=== PATIENT | male | born 1965 | race African-American/Black ===

== ENCOUNTER 2019-06-07 18:16 | Emergency (ER) | payer OTHER, BC, SELFPAY ==
[2019-06-07 18:18] VITALS: BP 146/85; PULSE 65; RESP 16; TEMP 36.4; O2SAT 97
--- NOTE | 2019-06-07 18:28 | ED.GENADULT ---
HPI - General Adult General Chief complaint: Extremity Injury, Upper Stated complaint: Rt elbow injury Time Seen by Provider: 06/07/19 18:28 Source: patient Mode of arrival: ambulatory Limitations: no limitations History of Present Illness HPI narrative: 54-year-old male patient presents to the [facility] with complaints of right elbow pain. Patient states that he was at work today and was coming out of the stairwell and got his sleeve caught on the door handle and when the door slammed in a hyperextended his right arm. Patient states that since then he is been having pain to the right elbow and states that he feels like he cannot make a muscle. Patient denies any numbness or tingling to the fingertips. Patient denies taking thing for the pain. Related Data Allergies Allergy/AdvReac Type Severity Reaction Status Date / Time No Known Allergies Allergy Verified 11/09/17 08:35 Review of Systems Review of Systems: Narrative: CONSTITUTIONAL: Denies fever, chills, or sweats. EYES: Denies visual changes, redness, or discharge. ENT: Denies rhinorrhea, congestion, sore throat, or otalgia. CARDIOVASCULAR: Denies chest pain, palpitations, or edema. RESPIRATORY: Denies cough or dyspnea. GASTROINTESTINAL: Denies abdominal pain, nausea, vomiting, or diarrhea. GENITOURINARY: Denies dysuria or hematuria. SKIN: Denies rash or itching. MUSCULOSKELETAL: Denies back pain, joint pain, or myalgia. Positive right elbow pain NEUROLOGIC: Denies headache, numbness, or weakness. PSYCHIATRIC: Denies anxiety or depression. [facility] Surgical History Surgical History (Updated 06/07/19 @ 18:29 by HARLEEN Sheth) History of orthopedic surgery 2 arthroscopies and 1 reconstructive on right knee. Hx of cholecystectomy Family History Family History Grandparent Family history of Alzheimer's disease Diabetes mellitus Social History Social History Smoking status: Never smoker Alcohol intake: current Comments At the time of my signature I agree with nursing past medical history, surgical, social, and family history. There is no relevant family history pertinent to the presenting complaint. Exam Narrative: Exam Narrative: GENERAL: Well-appearing, well-nourished, and in no acute distress. HEAD: Normocephalic, atraumatic. EYES: PERRLA and EOMI. ENT: Nares clear, no rhinorrhea or epistaxis. Mucous membranes moist. NECK: Supple. No lymphadenopathy CHEST: Clear to auscultation. No respiratory distress. HEART: Regular rate and rhythm. No murmur heard. Normal peripheral pulses. ABDOMEN: Soft, nontender, nondistended, normal active bowel sounds. EXTREMITIES: The R elbow is without obvious asymmetry or deformity when compared to the L elbow. No obvious surface trauma, ecchymosis. There is some swelling noted to the anterior side of the right elbow on the ulnar side. There is an obvious muscle spasm/pulled muscle to the area there. There is slight tenderness noted on palpation to this area. No bony tenderness to palpation of the lateral or medial epicondyle, olecranon, or radial head. No epicondylar or axillary lymphadenopathy. Normal flexion, extension, supination, pronation. Normal muscle strength. Intact motor and sensation of ulnar, median, and radial nerves. SKIN: Warm, dry, no rash. NEURO: No focal deficits. Alert and oriented x3. Course Vital Signs Vital signs: Vital Signs Temperature 36.4 C L 06/07/19 18:18 Pulse Rate 65 06/07/19 18:18 Respiratory Rate 16 06/07/19 18:18 Blood Pressure 146/85 H 06/07/19 18:18 Pulse Oximetry 97 06/07/19 18:18 Temperature 36.4 C L 06/07/19 18:18 Pulse Rate 65 06/07/19 18:18 Respiratory Rate 16 06/07/19 18:18 Blood Pressure 146/85 H 06/07/19 18:18 Pulse Oximetry 97 06/07/19 18:18 Medical Decision Making Differential Diagnosis Differential Diagnosis: Differenti
== END 2019-06-07 18:43 | disposition home or self-care (01) ==
PROVIDERS: Emergency Provider Nurse Practitioner Family; PCP Family Medicine
DX: S53.401A Unspecified sprain of right elbow, initial encounter (principal); X50.0XXA Overexertion from strenuous movement or load, initial encounter
CPT/HCPCS: 99213; G0463

== ENCOUNTER 2019-06-12 00:08 | Emergency (ER) | payer OTHER, BC, SELFPAY ==
--- NOTE | ~2019-06-12 | XR_ITS ---
XR elbow RT min 3V 06/12/2019 01:04 INDICATION: Hyperextension injury PROCEDURE: 4 views right elbow COMPARISON: No prior studies for comparison. FINDINGS: Fracture, dislocation or subluxation is not identified. No significant joint effusion. The soft tissues appear within normal limits. No foreign bodies are identified. IMPRESSION: 1: NO ACUTE BONE OR JOINT ABNORMALITY IDENTIFIED. Reviewed, dictated and finalized at location A. ATION SYSTEMS OUTREACH SPECIALIST
--- NOTE | 2019-06-12 00:31 | ED.GENADULT ---
HPI - General Adult General Chief complaint: Extremity Injury, Upper Stated complaint: hyper extended r arm Time Seen by Provider: 06/12/19 00:31 Source: patient Mode of arrival: ambulatory Limitations: no limitations History of Present Illness HPI narrative: A 54 y/o male presents to the ED with c/o RUE pain since Thursday (5 days ago). Pt states that he was in a stairwell holding a door open when there was a vacuum effect from the wind and his elbow hyperextended. Pt noticed bruising on his RUE yesterday. He denies numbness/tingling and being on a blood thinner. Onset (ago): day(s) (5) Location: right and upper extremity Associated symptoms: other (RUE bruising) Related Data Allergies Allergy/AdvReac Type Severity Reaction Status Date / Time No Known Allergies Allergy Verified 06/12/19 00:56 Review of Systems Review of Systems: All systems reviewed & are unremarkable except as noted in HPI and below Musculoskeletal: Comments: Reports: RUE pain Neurologic: Denies numbness (and tingling) Hematologic/Lymphatic: Comments: Reports: RUE bruising PMFSH Past Medical History Medical History Sinus problem Wears glasses Surgical History Surgical History History of orthopedic surgery 2 arthroscopies and 1 reconstructive on right knee. Hx of cholecystectomy Family History Family History Grandparent Family history of Alzheimer's disease Diabetes mellitus Social History Social History Smoking status: Never smoker Alcohol intake: current Comments PCP: Dr. Mims Exam Narrative: Exam Narrative: APPEARANCE: No acute distress, nontoxic, resting in bed Eyes: EOMI HEENT: Normocephalic, atraumatic, RESPIRATORY: No respiratory distress MUSCULOSKELETAl: Tender palpation over the right medial palmar elbow in the region of the biceps tendon insertion ecchymosis over the forearm in this region as well as up into the medial bicep, radial pulse 2+, neurovascular intact, full flexion extension of the elbow shoulder and wrist without pain neurovascular intact NEURO: Awake and alert. Following commands, speech normal, no focal deficits SKIN:: Warm, dry. Normal Color no rash or lesions Course Course Emergency Course: Discussed with Dr. Richards presentation work-up. Discussed concern of distal bicep tendon rupture. Request patient be placed in sling with follow-up in the office on Thursday Discussed with patient results of workup and diagnosis. Discussed need for follow-up with primary care, proper use of medication, and reasons to return to the emergency department. Patient understands and agrees to current treatment plan Vital Signs Vital signs: Vital Signs Temperature 97.1 F L 06/12/19 00:53 Pulse Rate 68 06/12/19 00:53 Respiratory Rate 20 06/12/19 00:53 Blood Pressure 137/74 06/12/19 00:53 Pulse Oximetry 99 06/12/19 00:53 Temperature 97.1 F L 06/12/19 00:53 Pulse Rate 68 06/12/19 00:53 Respiratory Rate 20 06/12/19 00:53 Blood Pressure 137/74 06/12/19 00:53 Pulse Oximetry 99 06/12/19 00:53 Medical Decision Making Vital Signs Vital Signs: Vital Signs Temperature 97.1 F L 06/12/19 00:53 Pulse Rate 68 06/12/19 00:53 Respiratory Rate 20 06/12/19 00:53 Blood Pressure 137/74 06/12/19 00:53 Pulse Oximetry 99 06/12/19 00:53 Temperature 97.1 F L 06/12/19 00:53 Pulse Rate 68 06/12/19 00:53 Respiratory Rate 20 06/12/19 00:53 Blood Pressure 137/74 06/12/19 00:53 Pulse Oximetry 99 06/12/19 00:53 Imaging Data Attestation: I personally reviewed and interpreted this imaging study as follows: My impression: Elbow x-ray reviewed by myself shows no acute process Discharge Plan Discharge Clinical Impression: Rupture of right distal biceps tendon Patient
[2019-06-12 00:53] VITALS: BP 137/74; PULSE 68; RESP 20; TEMP 36.2; O2SAT 99
[2019-06-12 01:30] VITALS: BP 125/68; PULSE 70; RESP 18; TEMP 36.7; O2SAT 99
== END 2019-06-12 01:40 | disposition home or self-care (01) ==
PROVIDERS: Emergency Provider Emergency Medicine; PCP Family Medicine
DX: S46.211A Strain of muscle, fascia and tendon of other parts of biceps, right arm, initial encounter (principal); X50.9XXA Other and unspecified overexertion or strenuous movements or postures, initial encounter
CPT/HCPCS: 73080; 99283; A4565

== ENCOUNTER 2019-06-15 14:58 | Outpatient (CLI) | payer OTHER, BC, SELFPAY ==
--- NOTE | 2019-06-15 15:11 | ECG_ITS ---
Measurements Intervals [place] Rate: 61 P: 7 OK: 152 QRS: 54 QRSD: 90 T: 50 QT: 366 QTc: 371 Interpretive Statements SINUS RHYTHM NORMAL ECG Electronically Signed On 06-15-2019 15:25:39 MOSS GATHERER by Frederick Garces D.O.
[2019-06-15 15:16] LABS: Hematocrit 41.6 % (42.0-52.0); Hemoglobin 13.8 g/dL (14.0-18.0); Mean Corpuscular HGB Conc 33.2 g/dl (32-36); Mean Corpuscular Hemoglobin 29.5 pg (26-34); Mean Corpuscular Volume 88.9 fl (80-100); Mean Platelet Volume 10.1 fl (7.4-10.4); Platelet Count Result 241 k/mm3 (150-375); Red Blood Count 4.68 M/mm3 (4.6-6.20); Red Cell Distribution Width 13.2 % (11.5-14.5)
[2019-06-15 15:25] LABS: Blood Urea Nitrogen 16 mg/dL (9-20); Calcium 9.2 mg/dL (8.4-10.2); Carbon Dioxide 26 mmol/L (22-30); Chloride 102 mmol/L (98-107); Estimated Glomerular Filt Rate > 60; Glucose 91 mg/dL (75-110); Potassium 4.3 mmol/L (3.4-5.0); Sodium 139 mmol/L (137-145)
== END 2019-06-15 14:59 | disposition home or self-care (01) ==
PROVIDERS: PCP Family Medicine; Visit Provider Nurse Practitioner Family
DX: Z01.818 Encounter for other preprocedural examination (principal)
CPT/HCPCS: 36415; 80048; 85027; 93005

== ENCOUNTER 2019-06-17 00:25 | Day surgery (SDC) | payer OTHER, BC, SELFPAY ==
[2019-06-15 09:59] VITALS: BMI 31.8
[2019-06-17] VITALS (10 sets, daily range): BP systolic 130–164; BP diastolic 73–105; PULSE 65–81; RESP 12–18; TEMP 35.9–36.8; O2SAT 90–100
--- NOTE | ~2019-06-17 | XR_ITS ---
EXAMINATION: XR elbow RT 2V DATE: 06/17/2019 15:51 INDICATION: Distal biceps tendon rupture TECHNIQUE: Anteroposterior and lateral views of the right elbow were obtained. COMPARISON: 06/12/2019 FINDINGS: Bone alignment is normal. No fracture. A couple lucent likely suture anchor tracts at the radial tube rosity and gas in the soft tissues anterior to the elbow and distal upper arm consistent with repair of reported distal biceps tendon rupture. Joint spaces are normal. No right elbow joint effusion. Fib erglas splint along the posterior side of the elbow. IMPRESSION: 1. Likely suture anchors at the radial tuberosity consistent with repair of reported distal biceps te ndon rupture. No other osseous abnormality. Reviewed, dictated and finalized at location A. T DEVELOPER IMPRESSION: 1. Likely suture anchors at the radial tuberosity consistent with repair of rep orted distal biceps tendon rupture. No other osseous abnormality.
--- NOTE | 2019-06-17 06:21 | HP_ITS ---
DATE OF SERVICE: 06/17/2019 DIAGNOSIS: Right distal biceps tendon rupture. HISTORY: The patient is a 54-year-old male, patient of Dr. Mims, presents today for a right distal biceps tendon repair. He injured this elbow on June 08. The patient was carrying a large exterior door in the right hand when he was outside, a wind blew pulling his elbow and hyperextending and he felt a very sharp pain in the antecubital fossa. The pain lingered and gradually worsened over the course of the next several days and developed some bruising in the anteromedial aspect of the elbow. He notices his arm felt weak. He was initially seen by Dr. Mims on June 13. After initial evaluation, the patient was sent for an MRI scan of his elbow, which confirmed that the patient did have a tear of the distal biceps tendon with retraction. He presents today for surgical repair of this. PAST MEDICAL HISTORY: He has had his gallbladder out in the past. He has had ACL reconstruction of both knees in 2016. MEDICATIONS: Currently, he is not taking any medications. ALLERGIES: NO KNOWN DRUG ALLERGIES. FAMILY HISTORY: Noncontributory. SOCIAL HISTORY: He is a nonsmoker. PHYSICAL EXAMINATION: VITAL SIGNS: He is 5 feet 10 inches, 243 pounds. Other vital signs per nursing on the morning of surgery. HEENT: Grossly normal. LUNGS: Clear bilaterally. HEART: Rate and rhythm. EXTREMITIES: He has full active range of motion of the right elbow, full pronation, supination. He has moderate weakness with supination and appears that the biceps retraction proximally with this. He does not have a distinct palpable distal biceps tendon in the antecubital fossa with hook test. He has a 7 or 8 inch long x 5 inch wide reddish purple ecchymosis and diffuse tenderness over the common flexor origin. He also has moderate tenderness over the center of the antecubital fossa, elbow. Intact sensation in the right upper extremity. 2+ radial artery pulse. IMAGING DATA: X-rays of the elbow were negative. MRI scan again confirms a rupture of the distal biceps tendon with retraction. IMPRESSION: The patient has a distal biceps tendon rupture. Dr. Mims discussed with him these need to be surgically repaired. Surgical procedure as well as risks and complications were discussed. All questions were answered and we will proceed. He will avoid his ibuprofen as of 06/13. D I MT: Yoli
--- NOTE | 2019-06-17 10:48 | WPDANESEPPF ---
Anes - Initial Pre Proc Eval Procedure: Operation Date: 06/17/19 12:30 Proposed Procedures p Two Incision Distal Bicep Repair Right Elbow - Jamie Richards MD Date/Time: 06/17/19 10:48 Surgeon: Jamie Richards MD Pre Op Diagnosis: Distal Bicep Rupture Right Elbow Patient Data Age: 54 Gender: M Height: 1.83 m Weight: 106.59 kg Allergies Allergy/AdvReac Type Severity Reaction Status Date / Time No Known Allergies Allergy Verified 06/17/19 10:54 Home Medications Medication Instructions Recorded Confirmed Type cyclobenzaprine 10 mg PO TID PRN 5 Days #15 tablet 06/07/19 06/17/19 Rx Patient hx anesthesia problems: none Family hx anesthesia problems: none PMFSH Past Medical History Medical History (Updated 06/17/19 @ 10:49 by Nakul Leo MD) Obesity Sinus problem Wears glasses Surgical History Surgical History History of orthopedic surgery 2 arthroscopies and 1 reconstructive on right knee. Hx of cholecystectomy Social History Social History Smoking status: Never smoker Alcohol intake: current Anes - Eval Final PreProcedure Day of Procedure 06/17/19 10:48 Patient weight: overweight Heart: regular rate and rhythm Lungs: clear to auscultation and normal air movement Airway: Mallampati scale class II Neurological: alert and oriented Last oral intake: >/= 8 hours ASA classification: II Emergent: no Anesthetic plan: proceed Anesthesia type and monitoring: general LMA Informed Consent: The patient's anesthetic plan and its attendant risks and benefits were discussed with the patient/family/POA. Questions were solicited and answers provided to the satisfaction of the patient/family/POA.
[2019-06-17] MEDS: LACTATED RINGERS 1,000 ML 30 ML IV CONT ×2 (11:10→15:33)
--- NOTE | 2019-06-17 12:19 | WPDHPUPDATE1 ---
History and Physical Update Update Date/Time: 06/17/19 12:19 History and Physical has been reviewed, including an updated exam of the patient. There are NO changes in the patient's condition. Risks, benefits, and alternatives have been discussed and questions answered. Patient agrees to proceed with procedure.
[2019-06-17] MEDS: ceFAZolin 2 GM/D5W 50 ML 2 GM/50 ML BAG IVPB (12:31)
[2019-06-17] MEDS: KETOROLAC 30 MG/ML VIAL (*BKC) IV PUSH (13:02)
[2019-06-17] MEDS: ceFAZolin SODIUM 1 GM VIAL IRRIGATION (13:45)
[2019-06-17] MEDS: ceFAZolin SODIUM 1 GM VIAL IV PUSH (14:45)
[2019-06-17] MEDS: BUPIVACAINE/EPINEPHRINE 0.5% 10 ML VIAL INFILTRATE (14:50)
--- NOTE | 2019-06-17 15:05 | PM.OP ---
Procedure Note - Brief Procedure Note - Brief Date of procedure: 06/17/19 Pre-op diagnosis: Distal Bicep Rupture Right Elbow Procedure performed: Right biceps tendon repair at elbow Description of procedure: Repair same Anesthesia: GETA Surgeon: Jamie Richards MD Manager Of Sustainability: Molly Estimated blood loss (mL): 25 Tourniquet time (min): 93 Drains: No Packing: No Pathology: none sent Complications: No immediate complications Condition: stable Disposition: PACU
[2019-06-17] MEDS: ONDANSETRON INJ 4 MG/2 ML VIAL IV PUSH (16:50)
[2019-06-17] MEDS: SCOPOLAMINE 1.5 MG PATCH TRANSDERM (17:17)
--- NOTE | 2019-06-17 19:18 | OP_ITS ---
DATE OF PROCEDURE: 06/17/2019 PREOPERATIVE DIAGNOSIS: Complete distal biceps tendon rupture. POSTOPERATIVE DIAGNOSIS: Complete distal biceps tendon rupture. PROCEDURE: Open repair right distal biceps tendon using 2 incision technique. POLICY CHANGE CLERKS SUPERVISOR: Efren Edwards. DESCRIPTION OF PROCEDURE: The patient was brought to the operating room and general anesthesia was administered. The right arm prepped and draped in usual fashion. He received 2 g of Ancef preoperatively. All the skin covered with Ioban. The limb was exsanguinated. Tourniquet elevated to 250 mmHg. A 4 cm transverse incision was made at the antecubital fossa. The cephalic vein was protected and mobilized. The distal biceps tendon was identified. It was covered with a layer of organizing somewhat fibrous hematoma tissue. It was carefully debrided and the distal tip very conservatively trimmed to eliminate the bulbous shape and two #2 fiber wires were woven in a banal fashion up and down the tendon and each pair was thoroughly tensioned to remove all creep giving us 4 sutures coming off the end of the biceps. We identified the musculocutaneous nerve resting on the anterior surface of the brachialis muscle and we made sure that this was mobilized to the lateral side of our biceps tendon reattachment. A curved peon was then utilized passing this down through the tunnel for the biceps tendon down to the tuberosity of the radius and with the arm pronated and the curve pointing laterally away from the ulna. This was advanced through the proximal dorsal forearm musculature to tent the skin and incision was made at this location. The fascia over the forearm musculature was longitudinally incised and with blunt dissection we mobilized this and we split the fibers of the supinator again with the arm in pronation, which brought us down to the tuberosity of the proximal radius. This was cleared of a small amount of residual degenerative tissue and a 4 mm bur was used to make a 6 mm x 14 mm slot corresponding to the length of the tuberosity and then a 2 mm drill was used to make 3 drill holes each 7 mm apart approximately 5 mm from the opening in the tuberosity. The 4 limbs of the sutures, which we had marked with respect to the distal proximal orientation of the attachment of the biceps were passed with the peon. Again, the peon was passed ulnar to the musculocutaneous nerve and then we passed the 2 pairs of sutures through the 3 holes, 2 of the sutures going in the center hole and we advanced the tendon, which nuzzle nicely into the oval slot in the radius. We had pronation supination without catching. We tied the sutures down snugly and after suture tying, I could see that we could extend the elbow with the forearm supinated to about 15 degrees before the biceps became tight. He had very good bone quality, so I anticipate we will allow early range of motion starting at 1 week. The tourniquet was released and hemostasis was achieved. I should note that we did release the tourniquet after completing the last drill hole, but when I came trying to pass the sutures through the drill holes of the [place] suture passer. Visualization was too difficult, so we re-exsanguinated and reelevated the tourniquet at that time. An additional gram of Ancef was given at time of wound closure. Local anesthetic was injected 5 cc of plain, 0.5% Marcaine in the subcutaneous tissues and 5 cc of 0.5% Marcaine with epi in the dorsal proximal forearm musculature. The wound was irrigated multiple times with antibiotic solution during the procedure. The fascia was approximated with 0 Vicryl in the dorsal proximal forearm, and then the skin closed with 3-0 subcuticular Vicryl, the anterior and dorsal incisions and he was placed in a posterior splint with the elbow at 90 degrees. There were no kn
== END 2019-06-17 17:55 | disposition home or self-care (01) ==
PROVIDERS: PCP Family Medicine; Visit Provider Orthopaedic Surgery
PROC: (CPT 24341; principal; 2019-06-17 12:30)
DX: S46.211A Strain of muscle, fascia and tendon of other parts of biceps, right arm, initial encounter (principal); X50.0XXA Overexertion from strenuous movement or load, initial encounter
CPT/HCPCS: 24340; 73070; A4565; A9270; J0131; J0690; J1100; J1200; J1885; J2250; J2370; J2405; J2704; J3010; J7120

== ENCOUNTER 2019-09-21 08:30 | Outpatient (RCR) | payer OTHER, BC, SELFPAY ==
--- NOTE | 2019-06-24 15:24 | OTOPEVAL ---
OCCUPATIONAL THERAPY INITIAL EVALUATION REPORT 06/24/2019 Thank you for referring this patient to [facility]. Umang will benefit from skilled OT 2-3x/week for 4 weeks. Please review, sign, date and return this plan of care HEIDY. I agree with and certify that the following plan of care is medically necessary. Referring Physician Date Admitting Provider: Attending Provider: Jamie Richards MD Referring Provider: *OT Outpatient Evaluation Start: 06/24/19 09:16 Freq: Status: Active Protocol: Document 06/24/19 09:15 ANA ROSA (Rec: 06/24/19 13:54 ANA ROSA [email or web address]) Therapy Assessment Status Assessment Status Assessment Status Evaluation Outpatient Past Medical History Neurological History Hx Neurological Disorders No Significant History Cardiovascular History Hx Cardiac Disorders No Significant History Respiratory History Hx Respiratory Disorders No Significant History Gastrointestinal History Hx Cholecystectomy Yes Genitourinary History Hx Genitourinary Disorders No Significant History Musculoskeletal History Hx Orthopedic Surgery Yes: BILATERAL ACL REPAIR AND BILATERAL KNEE ARTHROSCOPY Hx Other Musculoskeletal Disorders Yes: DISTAL BICEP RUPTURE RT ELBOW Hematological History Hx Hematological Disorders No Significant History Endocrine History Hx Endocrine Disorders No Significant History HEENT History Hx HEENT Disorders No Significant History Integumentary History Hx Skin Disorders No Significant History Reproductive History Hx Reproductive Disorders No Significant History Psychosocial History Hx Psychiatric Disorders No Significant History Pain History History of Any Previous or Ongoing No Significant History Instance of Pain Anesthesia History Hx Anesthesia Reactions No Significant History Evaluation Information Problem Diagnosis (R) distal biceps tendon rupture Additional Evaluation Detail s/p open repair 06/17/19 Prior Level of Function Activity Level (Last 3 Months) 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 is
--- NOTE | 2019-07-21 09:53 | OTOPEVAL ---
OCCUPATIONAL THERAPY RE-EVALUATION REPORT 07/21/2019 Thank you for referring this patient to [facility]. Continued skilled OT is indicated 2x/week for 4 weeks. Please review, sign, date and return this plan of care HEIDY. I agree with and certify that the following plan of care is medically necessary. Referring Physician Date Admitting Provider: Attending Provider: Jamie Richards MD Referring Provider: *OT Outpatient Re-Evaluation Evaluation Information Diagnosis (R) distal biceps tendon rupture Additional Evaluation Detail Umang has been participating in outpatient OT since 06/24/19 following distal biceps tendon rupture and repair (). Subjective Information Patient reports that since the Query Text:As Reported By Patient/ start of care his exercises Family have become a lot more comfortable as his flexibility has improved. He does state that the incision on the outside of the forearm as well as the radius itself is always sore . As far as weaning off the splint, the patient reports at home I'm not in the splint very much , and if he leaves the house he is wearing the splint multimedia designer. He reports no increase in his soreness when he goes without the splint around the house. Pain Assessment Timing of Pain Assessment Timing of Pain Assessment Re-assessment Pain Scale Pain Scale Used Numeric (1 - 10) Self Report Pain Assessment Right Elbow(s) Reported Pain Level 5 Pain Description Aching,Soreness Lowest Pain Intensity 3 Greatest Pain Intensity 7 Pain Aggravating Factors Prolonged Position Other Pain Aggravating Factors Always most painful in the morning after sleeping in the orthotic. Pain Score Pain Score 5: Self Report Additional Pain Score Comments Patient's pain is along the surgial site on the radius and along the entire radius down to the wrist. Patient describes the pain as deep . Upper Extremity Range of Motion Scapular/ Shoulder Range of Motion Right Scapular: Retraction Normal Scapular: Protraction Normal Scapular D
--- NOTE | 2019-08-04 14:53 | PCOTNOTE ---
Patient called and cancelled OT tx due to illness.
--- NOTE | 2019-08-18 11:34 | OTOPEVAL ---
OCCUPATIONAL THERAPY RE-EVALUATION AND PROGRESS REPORT 08/18/2019 Umang is progressing well with therapy. Continued skilled OT indicated 1-2x/week for 4 weeks for deficits outlined below. Thank you for referring Umang Cervantes to [facility]. Please review, sign, date and return this plan of care [facility]. I agree with and certify that the following plan of care is medically necessary. Referring Physician Date Admitting Provider: Attending Provider: Jamie Richards MD Referring Provider: *OT Outpatient Re-Evaluation Evaluation Information Problem Diagnosis (R) distal biceps tendon rupture Additional Evaluation Detail Umang has been participating in outpatient OT since 06/24/19 following distal biceps tendon rupture and repair (). Therapy has progressed to strengthening, per MD orders. Subjective Information Patient reports good Query Text:As Reported By Patient/ compliance with HEPs, Family progressing from 1 to 2 lbs with strengthening. He reports always having some soreness on the posteriolateral forearm. Patient reports being cautious with what he picks up with the RUE, however his flexibility and ROM has greatly improved with light ADLs such typing, dressing, light household tasks, etc. Pain Assessment Timing of Pain Assessment Timing of Pain Assessment Re-assessment Pain Scale Pain Scale Used Numeric (1 - 10) Self Report Pain Assessment Right Elbow(s) Reported Pain Level 3 Pain Description Soreness Lowest Pain Intensity 2 Greatest Pain Intensity 6 Pain Aggravating Factors Exercise/Activity Other Pain Aggravating Factors Overuse with typing, sleeping wrong Pain Relief Interventions Used By Exercise,Heat,Medication Patient Pain Score Pain Score 3: Self Report Upper Extremity Range of Motion Scapular/ Shoulder Range of Motion Right Scapular: Retraction Normal Scapular: Protraction Normal Scapular Downward Rotation Normal Scapular Upward Rotation Normal Shoulder Medial Rotation - Active 10 cm difference between R and L Query Text:Reach Behind the Back Shoulder Lateral Rotation - Active 4 cm difference between R and L Query Text:Reach Behind the Head Scapular/Shoulder Range of Motion (R) shoulder AROM is WFL. He Comments has some tightness in his
--- NOTE | 2019-08-31 15:30 | PCOTNOTE ---
Patient called and cancelled todays tx session due to having to work.
--- NOTE | 2019-09-09 09:00 | PCOTNOTE ---
Patient called & cancelled scheduled appointment this date due to having to work.
--- NOTE | 2019-09-15 09:36 | OTOPEVAL ---
OCCUPATIONAL THERAPY RE-EVALUATION AND PROGRESS REPORT 09/15/2019 Thank you for referring Umang Cervantes to [facility]. Continued skilled OT indicated 1-2x/week for 4 weeks. Please review, sign, date and return this plan of care [facility]. I agree with and certify that the following plan of care is medically necessary. Referring Physician Date Referring Provider: Jamie Richards MD *OT Outpatient Re-Evaluation Evaluation Information Problem Diagnosis (R) distal biceps tendon rupture Additional Evaluation Detail Umang has been participating in outpatient OT since 06/24/19 following distal biceps tendon rupture and repair (). Therapy has progressed to strengthening, AROM, and PROM. He just began doing bicep curls with 10 lbs. Subjective Information Patient reports good Query Text:As Reported By Patient/ compliance with HEPs, Family progressing to 10 lbs. with strengthening. He reports always having some soreness on the posteriolateral forearm. Patient reports being cautious with what he picks up with the RUE, however his flexibility and ROM has greatly improved with light ADLs such typing, dressing, light household tasks, etc. He does note tingling in the median nerve distribution of the right hand with prolonged pronation during typing tasks. He does note that stretching and taking breaks during typing tasks helps prolong the tingling. Pain Assessment Timing of Pain Assessment Timing of Pain Assessment Re-assessment Pain Scale Pain Scale Used Numeric (1 - 10) Self Report Pain Assessment Right Elbow(s) Reported Pain Level 3 Pain Description Soreness,Tightness Lowest Pain Intensity 1 Greatest Pain Intensity 3 Pain Score Pain Score 3: Self Report Upper Extremity Range of Motion Elbow/Forearm Range of Motion Right Elbow Flexion - Active 135 Elbow Flexion - Passive 140 Elbow Extension - Active 0 Forearm Supination - Active 75 Forearm Supination - Passive 90 Forearm Pronation - Active 85 Forearm Pron
--- NOTE | 2019-09-21 15:44 | PCOTNOTE ---
This treatment is being continued on visit number [id number]. Please see documentation on both accounts to view progress. Completed interventions, outcomes, and problems have been marked as Inactive to facilitate the copying of the Care plan routine for recurring accounts.
== END 2019-09-21 14:50 | disposition home or self-care (01) ==
LOC: ANHOT 08:30
PROVIDERS: PCP Family Medicine; Visit Provider Orthopaedic Surgery
DX: S46.211D Strain of muscle, fascia and tendon of other parts of biceps, right arm, subsequent encounter (principal)
CPT/HCPCS: 97035; 97110; 97140; 97165; 97530; 97763; L3702

== ENCOUNTER 2019-11-08 09:00 | Outpatient (RCR) | payer OTHER, BC, SELFPAY ==
--- NOTE | 2019-09-23 08:21 | PCOTNOTE ---
Patient called & cancelled scheduled appointment this date due to work.
--- NOTE | 2019-10-03 14:56 | PCOTNOTE ---
Patient did not show or call to cancel OT tx today.
--- NOTE | 2019-10-20 08:42 | OTOPEVAL ---
OCCUPATIONAL THERAPY RE-EVALUATION AND PROGRESS REPORT 10/20/2019 Thank you for referring Umang Cervantes to [facility][Note 3]. Continued skilled OT indicated 2x/week for 4 weeks. Please review, sign, date and return this plan of care [facility]. I agree with and certify that the following plan of care is medically necessary. Referring Physician Date Referring Provider: Jamie Richards MD *OT Outpatient Re-Evaluation Evaluation Information Problem Diagnosis (R) distal biceps tendon rupture Additional Evaluation Detail Umang has been participating in outpatient OT since 06/24/19 following distal biceps tendon rupture and repair (). Therapy has been working on progressive strengthening and reducing symptoms of carpal tunnel. Subjective Information Patient reports good Query Text:As Reported By Patient/ compliance with HEPs, Family progressing to 10 lbs. with strengthening. He continues to report always having some soreness on the posteriolateral forearm. Patient reports still being cautious with what he picks up with the RUE, however his flexibility and ROM has greatly improved with light ADLs such typing, dressing, light household tasks, etc. He does note tingling in the median nerve distribution of the right hand with prolonged pronation during typing tasks. He does note that stretching and taking breaks during typing tasks helps prolong the tingling. He did have a few days off work and typing and noted a marked decrease in the numbness/tingling. Pain Assessment Timing of Pain Assessment Timing of Pain Assessment Re-assessment Pain Scale Pain Scale Used Numeric (1 - 10) Self Report Pain Assessment Right Arm(s) Reported Pain Level 3 Pain Description Aching,Soreness Lowest Pain Intensity 1 Greatest Pain Intensity 4 Pain Aggravating Factors Exercise/Activity Pain Score Pain Score 3: Self Report Upper Extremity Range of Motion Elbow/Forearm Range o
--- NOTE | 2019-11-10 09:35 | PCOTNOTE ---
Pt scheduled for 9:00 am OT treatment appointment on 11/10/2019, Pt did not call and no showed OT treatment appointment on this date.
--- NOTE | 2019-12-07 08:55 | OTOPEVAL ---
OCCUPATIONAL THERAPY DISCHARGE NOTE 12/07/2019 Umang was seen in outpatient OT for 31 treatment sessions from 06/24/19 through 11/08/19. He has not returned for further treatment since 11/08/19. The patient consistently called and cancelled treatment due to being too busy with work. Treatment was prolonged due to symptoms of median nerve compression in the right UE. He was compliant with all home exercises and body mechanics education, which included stretching, massage, median nerve gliding, splint wearing schedule, incorporating rest breaks with typing tasks and work station ergonomics. Thank you for referring Umang Cervantes to [facility].? The patient is being discharged today with ROM and strength goals met, however at our last session he continued to have complaints of paresthesias in the right hand. Please review, sign, date and return this D/C Note [facility]. I agree with and certify that the following plan of care is medically necessary. Referring Physician Date Referring Provider: Jamie Richards MD
== END 2019-12-07 12:38 | disposition home or self-care (01) ==
LOC: ANHOT 09:00
PROVIDERS: PCP Family Medicine; Visit Provider Orthopaedic Surgery
DX: S46.211D Strain of muscle, fascia and tendon of other parts of biceps, right arm, subsequent encounter (principal)
CPT/HCPCS: 97018; 97035; 97110; 97140

== ENCOUNTER 2020-02-04 17:40 | Emergency (ER) | payer BC, SELFPAY ==
--- NOTE | 2020-02-04 17:42 | ED.URI ---
HPI - URI/Sore Throat General Chief Complaint: Upper Respiratory Infection Stated Complaint: nasal pain Time Seen by Provider: 02/04/20 17:42 Source: patient and RN notes reviewed History of Present Illness HPI Narrative: Patient is a 54-year-old male who presents the urgent care with complaints of a possible sinus infection. Patient states that he has nasal pain, headache, frontal sinus pressure, and a slight nonproductive cough. Patient states that this feels like his typical sinus infections . Patient denies of any history of sinus surgery or seeing an ENT for chronic sinus infections. States that symptoms started a day and a half ago and he is only used ibuprofen [id number] for his headache. Patient states he also used 1 dose of Robitussin. Denies any other use of [id number] medication. Denies fever, nausea, vomiting, shortness of breath. Denies of any known exposure to Covid. No other acute complaints. No acute distress noted. Patient aware of the plan of care. Some parts of this dictation were generated by voice recognition software and may contain typographical and/or grammatical inaccuracies. Related Data Allergies Allergy/AdvReac Type Severity Reaction Status Date / Time No Known Allergies Allergy Verified 06/17/19 10:54 Review of Systems Review of Systems: Narrative: CONSTITUTIONAL: Denies fever, chills, or sweats. EYES: Denies visual changes, redness, or discharge. ENT: Reports of nasal burning, rhinorrhea, frontal sinus pressure CARDIOVASCULAR: Denies chest pain, palpitations, or edema. RESPIRATORY: Reports of mild intermittent nonproductive cough without dyspnea GASTROINTESTINAL: Denies abdominal pain, nausea, vomiting, or diarrhea. GENITOURINARY: Denies dysuria or hematuria. SKIN: Denies rash or itching. MUSCULOSKELETAL: Denies back pain, joint pain, or myalgia. NEUROLOGIC: Reports of headache All other systems reviewed are negative, except as documented in HPI. [facility] Past Medical History Medical History (Updated 02/04/20 @ 17:53 by HARLEEN Mckeon) Obesity Sinus problem Wears glasses Surgical History Surgical History History of orthopedic surgery 2 arthroscopies and 1 reconstructive on right knee. Hx of cholecystectomy Family History Family History Grandparent Family history of Alzheimer's disease Diabetes mellitus Social History Social History Smoking status: Never smoker Alcohol intake: current Comments At the time of my signature, I reviewed and agree with the nursing past medical, surgical, social, and family history. There is no relevant family history pertinent to the patient complaint. Exam Narrative: Exam Narrative: GENERAL: This is a well-nourished, well-developed patient, in no apparent distress. HEAD: normocephalic, atraumatic. Frontal sinus tenderness EYES: PERRL. Sclera clear/white. Vision is grossly intact. EARS: External ears normal, auditory canals clear and without drainage, mild fluid noted behind bilateral TMs without otitis, TMs normal without perforation. Hearing grossly intact. NOSE: External nose normal with no obvious nasal discharge, bilateral erythemic nares with clear rhinorrhea. THROAT: Mucous membranes moist, posterior pharynx clear. Mild postnasal drainage NECK: Neck supple CARDIOVASCULAR: Regular rate and rhythm without murmurs, gallops, or rubs. RESPIRATORY: Clear to auscultation. Breath sounds equal bilaterally. No wheezes, rales, or rhonchi. SKIN: warm, intact with no suspicious lesions or rash, good texture and turgor. NEURO: awake, alert, and oriented to person, place and time. There were no obvious focal neurologic abnormalities. EXTREMITIES: No clubbing, cyanosis, or edema. Course Vital Signs Vital signs: Vital Signs Temperature 97.2 F L 02/04/20 17:44 Pulse Rate 80
[2020-02-04 17:44] VITALS: BP 115/63; PULSE 80; RESP 16; TEMP 36.2; O2SAT 99
== END 2020-02-04 17:56 | disposition home or self-care (01) ==
PROVIDERS: Emergency Provider Nurse Practitioner Family; PCP Family Medicine
DX: J32.9 Chronic sinusitis, unspecified (principal)
CPT/HCPCS: 99213; G0463

== ENCOUNTER 2021-04-09 19:45 | Emergency (ER) | payer BC, SELFPAY ==
--- NOTE | 2021-04-09 19:46 | ED.URI ---
HPI - URI/Sore Throat General Chief Complaint: Upper Respiratory Infection Stated Complaint: Sinus Time Seen by Provider: 04/09/21 19:50 Source: patient and RN notes reviewed Mode of arrival: ambulatory Limitations: no limitations History of Present Illness HPI Narrative: 55-year-old male presents concern for 4-day history of sinus pressure, drainage, throat, beginning of a cough. He reports he is taking Sudafed with little relief. He reports history of sinus infections. He denies fever, chills, body aches, sweats. Reports he is vaccinated for Covid. He has no known Covid exposure. MD elicited complaint: cough and sore throat Related Data Allergies Allergy/AdvReac Type Severity Reaction Status Date / Time No Known Allergies Allergy Verified 06/17/19 10:54 Review of Systems Review of Systems: CONSTITUTIONAL: Denies malaise, chills, sweats, or fever. EYES: Denies visual changes, redness, or discharge. ENT: Reports rhinorrhea, congestion, sore throat. Denies sinus pain, otalgia CARDIOVASCULAR: Denies chest pain, palpitations, or edema. RESPIRATORY: Reports cough. Denies dyspnea. GASTROINTESTINAL: Denies abdominal pain, nausea, vomiting, diarrhea SKIN: Denies rash or itching. MUSCULOSKELETAL: Denies myalgia. NEUROLOGIC: Denies headache. All systems reviewed & are unremarkable except as noted in HPI and below PMFSH Past Medical History Medical History (Updated 04/09/21 @ 19:59 by Esther Zapata NP) Obesity Sinus problem Wears glasses Surgical History Surgical History History of orthopedic surgery 2 arthroscopies and 1 reconstructive on right knee. Hx of cholecystectomy Family History Family History Grandparent Family history of Alzheimer's disease Diabetes mellitus Social History Social History Smoking status: Never smoker Alcohol intake: current Comments At time of signature, agree with nursing past medical, surgical, social and family history. There is no relevant family history pertinent to the presenting complaint Exam Narrative: GENERAL: Well-appearing, well-nourished, and in no acute distress. HEAD: Normocephalic EYES: PERRLA, conjunctivae clear ENT: Nares clear, turbinates edematous and erythematous, clear discharge. Mucous membranes moist. TM pearly hendrix with dull light reflex bilaterally; no tragal tenderness. Oropharynx not erythematous without lesions. Tonsils not enlarged and without exudate, no drooling, no hoarseness, no trismus, uvula midline. NECK: Supple. No lymphadenopathy CHEST: Clear to auscultation, breath sounds equal. No wheezing, rhonchi, rales, or stridor. No respiratory distress, speaks in full sentences. HEART: Regular rate and rhythm. No murmur heard. SKIN: Warm, dry, no rash. NEURO: Alert and oriented x3. PSYCH: Normal mood and affect Course Course Emergency Course: Patient is aware of diagnosis, understands and agrees to treatment plan. Anticipatory guidance given. Patient agrees to follow-up as directed and is aware of reasons to seek care at the emergency department. Portions of this record may have been created with voice recognition software Vital Signs Vital signs: Reviewed. MDM - URI/Sore Throat MDM Narrative Medical decision making narrative: Differential diagnosis considered: Whitten virus, strep pharyngitis, allergic rhinitis, upper respiratory tract infection, sinusitis, rhinosinusitis, nasopharyngitis. viral pharyngitis, otitis media, otitis externa, pneumonia, bronchitis, viral cough syndrome, viral syndrome, and influenza. Exam findings show no acute concerns or changes; patient is non-toxic appearing and is in no distress. Patient is appropriate for outpatient treatment and follow-up. Lab Data Attestation: I reviewed the patient's lab results. Critical Care Time Critical Care Time Critical Care Tonny
[2021-04-09 19:50] VITALS: BP 142/82; PULSE 84; RESP 16; TEMP 36.1; O2SAT 98
== END 2021-04-09 20:03 | disposition home or self-care (01) ==
PROVIDERS: Emergency Provider Nurse Practitioner; PCP Family Medicine
DX: J06.9 Acute upper respiratory infection, unspecified (principal)
CPT/HCPCS: 99213; G0463

== ENCOUNTER 2023-11-19 17:53 | Emergency (ER) | payer OTHER, SELFPAY ==
[2023-11-19 18:04] VITALS: BP 149/88; PULSE 73; RESP 16; TEMP 36.6; O2SAT 99
--- NOTE | 2023-11-19 18:04 | ED.URI ---
HPI - URI/Sore Throat General Chief Complaint: Upper Respiratory Infection Stated Complaint: SINUS CONGESTION Time Seen by Provider: 11/19/23 18:04 Source: patient, RN notes reviewed and old records reviewed Mode of arrival: ambulatory Limitations: no limitations History of Present Illness HPI Narrative: 58-year-old male to [facility] with complaint nasal congestion, bilateral ear fullness for 5 days. Patient denies fever, cough shortness of breath, GI complaints, allergies, pertinent medical history. Patient has attempted to treat at home with [id number] medications without relief. Patient able to tolerate fluids by mouth. Respirations even and nonlabored. Patient able to speak in complete sentences without difficulty. Patient in no acute distress. Related Data Allergies Allergy/AdvReac Type Severity Reaction Status Date / Time No Known Allergies Allergy Verified 11/19/23 18:01 Review of Systems Review of Systems: All systems reviewed & are unremarkable except as noted in HPI and below Constitutional: Constitutional: Reports as per HPI and Denies fever(s) Eyes: Eyes: Reports no additional eye complaints ENT: Reports as per HPI, Reports ear discharge (Bilateral fullness; worse on left), Reports sinus pain, Reports sinus pressure and Denies sore throat Cardiovascular: Cardiovascular: Reports no additional cardiovascular complaints, Denies chest pain and Denies dyspnea Respiratory: Respiratory: Reports no additional respiratory complaints, Denies cough and Denies dyspnea Musculoskeletal: Musculoskeletal: Reports no additional musculoskeletal complaints Neurologic: Reports system reviewed and no additional complaints, except as documented Psychiatric: Psychiatric: Reports no additional psychiatric complaints PMFSH Past Medical History Medical History Apnea BMI 34.0-34.9,adult Edema Obesity Sinus problem Snoring Wears glasses Surgical History Surgical History History of orthopedic surgery 2 arthroscopies and 1 reconstructive on right knee. Hx of cholecystectomy Family History Family History Grandparent Family history of Alzheimer's disease Diabetes mellitus Social History Social History Smoking status: Never smoker Alcohol intake: current Lack of Transportation: No Lack of Food: Never True Current Housing: I Have Housing Concerned About Future Housing: No Difficulty Paying Gas/Electric Bills: No Difficulty Paying for Meds: No Currently Unemployed: No Education: Bachelor's Degree Difficulty w/ Childcare or Family Care: No Comments At the time of my signature, I reviewed and agree with the nursing past medical, surgical, social, and family history. There is no relevant family history pertinent to the patient complaint. Exam Const: General: cooperative, no acute distress, alert, ill appearing acutely, tired appearing, uncomfortable and well nourished Nutritional Appearance: well nourished Orientation/consciousness: patient oriented x3 Limitations: no limitations HENMT: Head: normal to inspection Ears: external ears normal and TM abnormal erythematous on the left, with fluid behind the TM bilateral and with loss of landmarks on the left Face/Nose/Sinus: Normal external nose present, Normal nares present, normal facial exam, No erythema and No edema Face and sinus: normal facial exam, no erythema and no edema Mouth: Yes Normal oral and palatal mucosa present Throat: posterior oropharynx abnormal erythema and postnasal drainage Eyes: General: appearance normal, both eyes and all related structures Neck: Neck: normal visual inspection, full ROM and no meningeal signs Lymphatic: no lymphadenopathy noted and no lymphedema noted Ches
== END 2023-11-19 18:18 | disposition home or self-care (01) ==
PROVIDERS: Emergency Provider Nurse Practitioner Family; PCP Family Medicine
DX: H66.92 Otitis media, unspecified, left ear (principal); E66.9 Obesity, unspecified; Z68.31 Body mass index [BMI] 31.0-31.9, adult
CPT/HCPCS: 99213; G0463

== ENCOUNTER 2023-12-28 05:54 | Emergency (ER) | payer OTHER, SELFPAY ==
[2023-12-28 06:01] VITALS: BP 157/98; PULSE 66; RESP 19; TEMP 36.4; O2SAT 95
[2023-12-28] MEDS: AZITHROMYCIN 250 MG TABLET 500 MG PO (06:14)
--- NOTE | 2023-12-28 06:25 | ED.URI ---
HPI - URI/Sore Throat General Chief Complaint: Upper Respiratory Infection Stated Complaint: sinus congestion, GENTILE Time Seen by Provider: 12/28/23 05:57 History of Present Illness HPI Narrative: Patient has had 2 weeks of sinus pain/drainage, he states that feels like his usual sinusitis that usually gets better with azithromycin. Had tried Flonase also without much improvement Related Data Allergies Allergy/AdvReac Type Severity Reaction Status Date / Time No Known Allergies Allergy Verified 12/28/23 06:04 Review of Systems Review of Systems: All systems reviewed & are unremarkable except as noted in HPI and below PMFSH Past Medical History Medical History Apnea BMI 34.0-34.9,adult Edema Obesity Sinus problem Snoring Wears glasses Surgical History Surgical History History of orthopedic surgery 2 arthroscopies and 1 reconstructive on right knee. Hx of cholecystectomy Family History Family History Grandparent Family history of Alzheimer's disease Diabetes mellitus Social History Social History Smoking status: Never smoker Alcohol intake: current Lack of Transportation: No Lack of Food: Never True Current Housing: I Have Housing Concerned About Future Housing: No Difficulty Paying Gas/Electric Bills: No Difficulty Paying for Meds: No Currently Unemployed: No Education: Bachelor's Degree Difficulty w/ Childcare or Family Care: No Exam Narrative: EXAMINATION OF ORGAN SYSTEMS/BODY AREAS: Constitutional: Vital signs per nursing GENERAL:[No acute distress, non-toxic appearing.] HEAD: Normal with no signs of head trauma. EYES: EOMI, conjunctiva normal ENT: Some slight tenderness to palpation to the sinuses LUNGS: Nonlabored breathing. HEART: [Regular rate and rhythm] ABD: No distension EXT: Normal range of motion SKIN: [No rashes or lesions.] NEURO: [Alert and oriented x 3. No gross focal sensory or strength deficits.] PSYCH: Normal affect Course Vital Signs Vital signs: Vital Signs Temperature 97.6 F 12/28/23 06:01 Pulse Rate 66 12/28/23 06:01 Respiratory Rate 19 12/28/23 06:01 Blood Pressure 157/98 H 12/28/23 06:01 Pulse Oximetry 95 12/28/23 06:01 Oxygen Delivery Room Air 12/28/23 06:01 Temperature 97.6 F 12/28/23 06:01 Pulse Rate 66 12/28/23 06:01 Respiratory Rate 19 12/28/23 06:01 Blood Pressure 157/98 H 12/28/23 06:01 Pulse Oximetry 95 12/28/23 06:01 Oxygen Delivery Room Air 12/28/23 06:01 MDM - URI/Sore Throat MDM Narrative Medical decision making narrative: Patient very well appearing with clear voice and some sinus tenderness on exam reporting that he has had 2 weeks now of sinus discomfort that feels like his usual sinusitis, he would like to try a Z-Dany since that usually works for him, I do feel this is reasonable as the symptoms have been ongoing for more than 10 days at this time, I would like him to continue with Flonase, and follow-up with ENT. Patient agreeable with this plan. Discharge Plan Discharge Clinical Impression: Sinusitis Patient Disposition: Home, Self-Care Condition: Stable Instructions: Antibiotic Form, Sinusitis (ED) Additional Instructions: Continue using the flonase daily. You can follow up with the ENT and come back to the ER for any further issues. Prescriptions: New azithromycin 250 mg tablet 250 mg PO DAILY 4 Days Qty: 4 0RF Rx Instructions: start on day 2 of therapy Follow-up/Referrals: Clive Peña MD [Physician] - 2 Days Phani Mims MD [Primary Care Provider] -
== END 2023-12-28 06:18 | disposition home or self-care (01) ==
PROVIDERS: Emergency Provider Emergency Medicine; PCP Family Medicine
DX: J32.9 Chronic sinusitis, unspecified (principal); E66.9 Obesity, unspecified; Z68.31 Body mass index [BMI] 31.0-31.9, adult
CPT/HCPCS: 99283; A9270

== ENCOUNTER 2023-12-29 00:24 | Emergency (ER) | payer OTHER, SELFPAY ==
--- NOTE | ~2023-12-29 | CT_ITS ---
Noncontrast CT scan of the paranasal sinuses CLINICAL HISTORY: Evaluate left frontal and maxillary sinuses FINDINGS: There is mucosal thickening of the right maxillary sinus with mild hyperostosis, suggestive of chronic sinusitis. Remaining paranasal sinuses and mastoid air cells are clear. No osseous abnorm ality seen otherwise. No fracture evident. No distinct soft tissue abnormality seen otherwise. IMPRESSION: Chronic right maxillary sinusitis. Reviewed, dictated and finalized at location M.
[2023-12-29 00:29] VITALS: BP 186/94; PULSE 66; RESP 15; TEMP 36.8; O2SAT 99
[2023-12-29 06:21] VITALS: BP 153/95; PULSE 71; RESP 16; TEMP 36.7; O2SAT 98
[2023-12-29 06:23] VITALS: O2SAT 98
--- NOTE | 2023-12-29 07:06 | ED.URI ---
HPI - URI/Sore Throat General Chief Complaint: Upper Respiratory Infection Stated Complaint: URI/sinus infection Time Seen by Provider: 12/29/23 07:04 Source: patient Mode of arrival: ambulatory Limitations: other (Time delay to evaluate patient but otherwise no other limitations) History of Present Illness HPI Narrative: Patient presents with concern for a sinus infection. Of note he was seen in this emergency department on 12/28/2023 and discharged with a prescription for azithromycin which he has been taking. He continues to endorse feeling a sharp pain and pressure particularly in his left frontal and maxillary sinus. He has an issue with recurrent sinus infections. He tried an unknown spray/flushes 3 days ago. He has also been trying Mucinex cold Sinus and ibuprofen with no relief. He feels nauseated from the pain. He describes it as a burning sensation. Denies any fevers. No history of diabetes mellitus. Related Data Allergies Allergy/AdvReac Type Severity Reaction Status Date / Time No Known Allergies Allergy Verified 12/29/23 00:25 PMFSH Past Medical History Medical History Apnea BMI 34.0-34.9,adult Edema Obesity Sinus problem Snoring Wears glasses Surgical History Surgical History History of orthopedic surgery 2 arthroscopies and 1 reconstructive on right knee. Hx of cholecystectomy Family History Family History Grandparent Family history of Alzheimer's disease Diabetes mellitus Social History Social History Smoking status: Never smoker Alcohol intake: current Lack of Transportation: No Lack of Food: Never True Current Housing: I Have Housing Concerned About Future Housing: No Difficulty Paying Gas/Electric Bills: No Difficulty Paying for Meds: No Currently Unemployed: No Education: Bachelor's Degree Difficulty w/ Childcare or Family Care: No Exam Narrative: GENERAL: Well-appearing, well-nourished, and in no acute distress. HEAD: Normocephalic, atraumatic. EYES: Non injected, non icteric ENT: Nares clear, no rhinorrhea or epistaxis. No appreciable nasal drainage. Bilateral nares are clear without significant appreciable polyps. No significant hyperemia. Very Mild tenderness to percussion of left frontal and maxillary sinus. NECK: Supple. CHEST: Speaking in full sentences. No respiratory distress. HEART: Regular rate and rhythm. ABDOMEN: Soft, nondistended. EXTREMITIES: Normal range of motion. No lower extremity edema. SKIN: Warm, dry, no rash. NEURO: No focal deficits. Alert and oriented x3. Patient speaks clearly without aphasia or dysarthria. PSYCH: Normal mood and affect. Course Vital Signs Vital signs: Vital Signs Temperature 98.2 F 12/29/23 00:29 Pulse Rate 66 12/29/23 00:29 Respiratory Rate 15 12/29/23 00:29 Blood Pressure 186/94 H 12/29/23 00:29 Pulse Oximetry 99 12/29/23 00:29 Temperature 98.1 F 12/29/23 06:21 Pulse Rate 71 12/29/23 06:21 Respiratory Rate 16 12/29/23 06:21 Blood Pressure 153/95 H 12/29/23 06:21 Pulse Oximetry 98 12/29/23 06:23 Oxygen Delivery Room Air 12/29/23 06:23 MDM - URI/Sore Throat MDM Narrative Medical decision making narrative: Patient presents with left sinus pain that has been persistent. He was seen on 12/28/2023 for this issue and prescribed azithromycin. He has been taking this as well as [id number] medication and sprays. In the emergency department he is afebrile with vital signs notable for hypertension, improved but still elevated on repeat. CT imaging notes RIGHT sinusitis. Patient does test positive for COVID. Patient reassessed at approximately 8:50 a.m.. He is feeling somewhat better. Discharged home in stable co
[2023-12-29] MEDS: ONDANSETRON HCL ODT 4 MG TABLET PO (07:32)
[2023-12-29] MEDS: HYDROcodone/acetaminophen (*CRX) 5-325 MG TABLET 1 TAB PO (07:33)
[2023-12-29 08:14] LABS: Influenza A QL RT-PCR Negative (Negative); Influenza B QL RT-PCR Negative (Negative); RSV RNA, RT-PCR Negative (Negative); SARS-CoV-2 RNA PCR Positive (Negative)
== END 2023-12-29 09:03 | disposition home or self-care (01) ==
PROVIDERS: Emergency Provider Student in an Organized Health Care Education/Training Program; PCP Family Medicine
DX: U07.1 COVID-19 (principal); J32.0 Chronic maxillary sinusitis; E66.9 Obesity, unspecified; Z68.31 Body mass index [BMI] 31.0-31.9, adult; Z90.49 Acquired absence of other specified parts of digestive tract
CPT/HCPCS: 70486; 87637; 99284; A9270

== ENCOUNTER 2024-02-03 07:00 | Outpatient (NON) | payer OTHER, SELFPAY | END 2024-02-04 07:44 | disposition home or self-care (01) | PROVIDERS: PCP Family Medicine; Visit Provider Internal Medicine Gastroenterology | DX: Z12.11 Encounter for screening for malignant neoplasm of colon (principal) | CPT/HCPCS: 88305 ==

== ENCOUNTER 2024-02-03 10:07 | Day surgery (SDC) | payer OTHER, SELFPAY ==
[2024-01-11 09:43] VITALS: BMI 32.5
[2024-01-19 09:29] VITALS: BMI 31.2
--- NOTE | 2024-02-03 07:03 | WPDANESEPPF ---
Anes - Initial Pre Proc Eval Procedure: Operation Date: 02/03/24 12:00 Proposed Procedures p Screening Colonoscopy - Tyrese Rogers MD Date/Time: 02/03/24 07:03 Surgeon: Tyrese Rogers MD Pre Op Diagnosis: Neoplasm Screening Patient Data Age: 58 Gender: M Height: 1.83 m Weight: 104.5 kg Allergies Allergy/AdvReac Type Severity Reaction Status Date / Time No Known Allergies Allergy Verified 02/03/24 11:01 Home Medications Medication Instructions Recorded Confirmed Type tirzepatide (weight loss) 5 mg/0.5 5 mg (0.5 mL) subcut WEEKLY #2 mL 02/02/24 02/03/24 Rx mL subcutaneous pen injector Patient hx anesthesia problems: none Family hx anesthesia problems: none Results Review: All pre-operative results and documents have been reviewed as part of the pre-operative evaluation. [facility] Past Medical History Medical History (Updated 02/02/24 @ 13:08 by Anabell Brown APRN) Apnea BMI 34.0-34.9,adult Combined hyperlipidemia Edema Encounter for wellness examination Obesity Screening for colon cancer Screening for lipid disorders Screening for prostate cancer Screening for thyroid disorder Sinus problem Snoring Wears glasses Surgical History Surgical History History of orthopedic surgery 2 arthroscopies and 1 reconstructive on right knee. Hx of cholecystectomy Family History Family History Grandparent Family history of Alzheimer's disease Diabetes mellitus Social History Social History Smoking status: Never smoker Alcohol intake: current Alcohol use details: 2-3 per month Substance use: never Substance use type: does not use Do You Feel Safe in your Home?: Yes Lack of Transportation: No Lack of Food: Never True Current Housing: I Have Housing Concerned About Future Housing: No Difficulty Paying Gas/Electric Bills: No Difficulty Paying for Meds: No Currently Unemployed: No Education: Bachelor's Degree Difficulty w/ Childcare or Family Care: No Living arrangements: with family Spiritual care concerns: No Anes - Eval Final PreProcedure Day of Procedure 02/03/24 07:03 Patient weight: obese Heart: regular rate and rhythm Lungs: clear to auscultation Airway: Mallampati scale class II Neurological: alert and oriented Last oral intake: >/= 8 hours ASA classification: II Emergent: no Anesthetic plan: proceed Anesthesia type and monitoring: general GIVS and standard monitoring Results Review: All pre-operative results and documents have been reviewed as part of the pre-operative evaluation. Informed Consent: The patient's anesthetic plan and its attendant risks and benefits were discussed with the patient/family/POA. Questions were solicited and answers provided to the satisfaction of the patient/family/POA.
[2024-02-03 11:11] VITALS: BP 112/78; PULSE 76; RESP 18; TEMP 36.6; O2SAT 99
[2024-02-03] MEDS: LACTATED RINGERS 1,000 ML 150 ML IV CONT (11:18)
--- NOTE | 2024-02-03 11:28 | PM.HPGS ---
History of Present Illness History of Present Illness Consent: Risks, benefits, and alternatives have been discussed and questions answered. Patient agrees to proceed with procedure. Chief complaint: Neoplasm Screening Narrative: Umang Cervantes is a 58 year old male presents for screening colonoscopy. Patient has current weight appetite and were normal. Patient denies abdominal pain. He has had no bleeding. Family history is noncontributory. Review of Systems Review of Systems: All systems reviewed & are unremarkable except as noted in HPI and below PMFSH Past Medical History Medical History (Updated 02/02/24 @ 13:08 by Anabell Brown APRN) Apnea BMI 34.0-34.9,adult Combined hyperlipidemia Edema Encounter for wellness examination Obesity Screening for colon cancer Screening for lipid disorders Screening for prostate cancer Screening for thyroid disorder Sinus problem Snoring Wears glasses Surgical History Surgical History History of orthopedic surgery 2 arthroscopies and 1 reconstructive on right knee. Hx of cholecystectomy Family History Family History Grandparent Family history of Alzheimer's disease Diabetes mellitus Social History Social History Smoking status: Never smoker Alcohol intake: current Alcohol use details: 2-3 per month Substance use: never Substance use type: does not use Do You Feel Safe in your Home?: Yes Lack of Transportation: No Lack of Food: Never True Current Housing: I Have Housing Concerned About Future Housing: No Difficulty Paying Gas/Electric Bills: No Difficulty Paying for Meds: No Currently Unemployed: No Education: Bachelor's Degree Difficulty w/ Childcare or Family Care: No Living arrangements: with family Spiritual care concerns: No Meds Home Medications and Allergies Home Medications Medication Instructions Recorded Confirmed Type tirzepatide (weight loss) 5 mg/0.5 5 mg (0.5 mL) subcut WEEKLY #2 mL 02/02/24 02/03/24 Rx mL subcutaneous pen injector Allergies Allergy/AdvReac Type Severity Reaction Status Date / Time No Known Allergies Allergy Verified 02/03/24 11:01 Vital Signs Vital Signs - 24 hr 02/03/24 11:11 Temperature 97.8 F Pulse Rate 76 Respiratory Rate 18 Blood Pressure 112/78 Pulse Oximetry 99 Oxygen Delivery Room Air Exam Narrative: Physical exam reveals patient alert. Vital signs stable. HEENT exam is unremarkable. Patient is anicteric. Lungs are clear to auscultation and to percussion. Heart is without murmur or extra sounds. Abdomen bowel sounds are present soft nontender with no organomegaly. Digital external rectal exam normal. Assessment and Plan Assessment and plan (1) Screening for colon cancer: Code(s): Z12.11 - Encounter for screening for malignant neoplasm of colon Status: Acute Assessment and Plan: Presents today for neoplasia screening colonoscopy. He appears to be at average risk for colon polyps. Further recommendations could be given after endoscopy.
[2024-02-03 12:25] VITALS: BP 116/95; PULSE 77; RESP 16; O2SAT 100
--- NOTE | 2024-02-03 12:33 | WPDANESPN ---
Anes - Prog Note Post-Op Date/Time: 02/03/24 12:33 Cardiovascular status: normal Respiratory status: normal Airway patency: baseline Mental status: baseline Post-Op hydration status: normal Vital Signs: Last Vital Signs Temp 36.6 C 02/03/24 11:11 Pulse 77 02/03/24 12:25 Resp 16 02/03/24 12:25 BP 116/95 H 02/03/24 12:25 Pulse Ox 100 02/03/24 12:25 O2 Del Method Room Air 02/03/24 12:25 Pain Score (VAS): 0 I/O: Intake & Output 02/02/24 02/03/24 02/03/24 23:59 07:59 15:59 Intake Total 200 Balance 200 Post-procedural complaints: none Patient Feedback: Patient satisfied with anesthetic care. Other Findings: Patient vital signs back to baseline. Patient denies nausea and vomiting. Patient's pain under control. Patient OK for discharge.
[2024-02-03 12:35] VITALS: BP 118/72; PULSE 78; RESP 16; O2SAT 98
[2024-02-03 12:45] VITALS: BP 118/74; PULSE 68; RESP 14; O2SAT 99
== END 2024-02-03 12:59 | disposition home or self-care (01) ==
PROVIDERS: PCP Family Medicine; Visit Provider Internal Medicine Gastroenterology
PROC: 0DJD8ZZ Inspection of Lower Intestinal Tract, Via Natural or Artificial Opening Endoscopic (ICD-10-PCS; CPT 45378; principal; 2024-02-03 12:00)
DX: Z12.11 Encounter for screening for malignant neoplasm of colon (principal); D12.5 Benign neoplasm of sigmoid colon
CPT/HCPCS: 45385

== ENCOUNTER 2024-08-25 16:53 | Emergency (ER) | payer OTHER, SELFPAY ==
[2024-08-25 17:17] VITALS: BP 121/86; PULSE 79; RESP 16; TEMP 36.4; O2SAT 98
--- NOTE | 2024-08-25 17:54 | ED.GENADULT ---
HPI - General Adult General Chief complaint: Skin/Abscess/Foreign Body Stated complaint: RASH/PAIN Source: patient Mode of arrival: ambulatory Limitations: no limitations History of Present Illness HPI narrative: Patient presents for evaluation of painful skin lesions. He initially noted a left sided headache about one week ago. He then developed left sided scalp pain which radiated down into the neck. He then developed blistered lesions left side of the scalp in left side of his face. None of the lesions crust midline. He took hydrocodone which did not help. He had chickenpox earlier in life. Related Data Allergies Allergy/AdvReac Type Severity Reaction Status Date / Time No Known Allergies Allergy Verified 08/25/24 17:15 Review of Systems Review of Systems: CONSTITUTIONAL: Denies fever, chills, or sweats. EYES: Denies visual changes, redness, or discharge. ENT: Denies rhinorrhea, congestion, sore throat, or otalgia. CARDIOVASCULAR: Denies chest pain, palpitations, or edema. RESPIRATORY: Denies cough or dyspnea. GASTROINTESTINAL: Denies abdominal pain, nausea, vomiting, or diarrhea. GENITOURINARY: Denies dysuria or hematuria. SKIN: Reports painful skin lesions to the left side of his scalp and left side of the face. MUSCULOSKELETAL: Denies back pain, joint pain, or myalgia. NEUROLOGIC: Reports headache. Denies numbness, dizziness, or weakness. PSYCHIATRIC: Denies anxiety or depression. [facility] Past Medical History Medical History Chronic sinus infection Sleep apnea Combined hyperlipidemia Screening for colon cancer Screening for prostate cancer Encounter for wellness examination Screening for lipid disorders Screening for thyroid disorder Edema Apnea Snoring BMI 34.0-34.9,adult Obesity Sinus problem Wears glasses Surgical History Surgical History History of orthopedic surgery 2 arthroscopies and 1 reconstructive on right knee. Hx of cholecystectomy Family History Family History Grandparent Family history of Alzheimer's disease Diabetes mellitus Social History Social History Smoking status: Never smoker Alcohol intake: current Alcohol use details: 2-3 per month Substance use: never Substance use type: does not use Do You Feel Safe in your Home?: Yes Lack of Transportation: No Lack of Food: Never True Current Housing: I Have Housing Concerned About Future Housing: No Difficulty Paying Gas/Electric Bills: No Difficulty Paying for Meds: No Currently Unemployed: No Education: Bachelor's Degree Difficulty w/ Childcare or Family Care: No Living arrangements: with family Spiritual care concerns: No Exam Narrative: GENERAL: Well-appearing, well-nourished, and in no acute distress. HEAD: Normocephalic, atraumatic. EYES: PERRLA and EOMI. ENT: Nares clear, no rhinorrhea or epistaxis. Mucous membranes moist. Oropharynx without tonsillar hypertrophy exudate or other lesions. Bilateral TMs pearly hendrix nonbulging NECK: Supple. No adenopathy or masses. No carotid bruits or JVD CHEST: Clear to auscultation. No respiratory distress. No wheezes rales or rhonchi HEART: Regular rate and rhythm. No murmur heard. Normal peripheral pulses. ABDOMEN: Soft, nontender, nondistended, normal active bowel sounds. EXTREMITIES: Normal range of motion. No edema. SKIN: there are erythematous vesicles to the left side of his scalp and left side of his face. NEURO: No focal deficits. Alert and oriented x3. PSYCH: Normal mood and affect. Course Course Emergency Course: This is a 59-year-old male who presented for evaluation of painful scalp and facial lesions. This is a classic presentation of herpes zoster. Will treat with valacyclovir and gabapentin. He should follow up with primary care and go to the ER for worsening symptoms. Pt in agreement with plan of care. Level of Care: Express Care Visit Vital Signs Vital signs: Vital Signs Temperature 36.4 C 08/25/24 17:17 Pulse Rate 79 08/25/24 17:17 Respiratory Rate 16 08/25/24 17:17 Blood Pressure 121/86 08/25/24 17:17 Pulse Oximetry 98 08/25/24 17:17 Temperature 36.4 C 08/25/24 17:17 Pulse Rate 79 08/25/24 17:17 Respiratory Rate 16 08/25/24 17:17 Blood Pressure 121/86 08/25/24 17:17 Pulse Oximetry 98 08/25/24 17:17 Medical Decision Making Vital Signs Vital Signs: Vital Signs Temperature 36.4 C 08/25/24 17:17 Pulse Rate 79 08/25/24 17:17 Respiratory Rate 16 08/25/24 17:17 Blood Pressure 121/86 08/25/24 17:17 Pulse Oximetry 98 08/25/24 17:17 Temperature 36.4 C 08/25/24 17:17 Pulse Rate 79 08/25/24 17:17 Respiratory Rate 16 08/25/24 17:17 Blood Pressure 121/86 08/25/24 17:17 Pulse Oximetry 98 08/25/24 17:17 Discharge Plan Discharge Clinical Impression: Herpes zoster Patient Disposition: Home Condition: Stable Instructions: Antibiotic Form, Shingles (ED) Patient Language: Chinese Prescriptions: New valacyclovir [Valtrex] 1 gram tablet 1,000 mg PO TID Qty: 30 0RF gabapentin 300 mg capsule 300 mg PO TID 10 Days Qty: 30 0RF No Action tirzepatide (weight loss) 7.5 mg/0.5 mL pen injector 7.5 mg subcut WEEKLY Qty: 6 1RF Patient Comments: ' Follow-up/Referrals: Phani Mims MD [Primary Care Provider] - Time of Disposition: 17:49
== END 2024-08-25 17:50 | disposition home or self-care (01) ==
PROVIDERS: Emergency Provider Nurse Practitioner; PCP Family Medicine
DX: B02.9 Zoster without complications (principal); E78.2 Mixed hyperlipidemia; E66.9 Obesity, unspecified; Z68.29 Body mass index [BMI] 29.0-29.9, adult
CPT/HCPCS: 99213; G0463